=== PATIENT | male | born 1970 | race Caucasian/White ===

== ENCOUNTER 2020-05-03 15:27 | Emergency (ER) | payer OTHER, MEDICAID, SELFPAY ==
[~2020-05-03] VITALS: Ht 167.6 cm; Wt 99.8 kg
[2020-05-03 15:30] VITALS: BP_SYST 159
--- NOTE | 2020-05-03 15:30 | NUR ---
BROUGHT IN TO TENT AND TRIAGED. AWAITING ER BED.
[2020-05-03] MEDS ORDERED: CEPH-568 PO (17:15)
[2020-05-03] MEDS: ceFAZolin SODIUM 1 GM VIAL IM ONE ×2 (17:46→18:00)
== END 2020-05-03 17:21 | disposition home or self-care (01) ==
LOC: SED 15:27
DX: L03.316 Cellulitis of umbilicus (principal); I10 Essential (primary) hypertension; E78.00 Pure hypercholesterolemia, unspecified
CPT/HCPCS: 99283; J0690